=== PATIENT | female | born 1930 | race Caucasian/White ===

== ENCOUNTER 2016-10-23 08:43 | Outpatient (CLI) | payer MEDICARE | END 2016-10-23 08:44 | disposition home or self-care (01) | DX: I10 Essential (primary) hypertension (principal); E78.5 Hyperlipidemia, unspecified ==

== ENCOUNTER 2017-11-03 10:00 | Outpatient (CLI) | payer MEDICARE ==
[2017-11-03 18:29] LABS: ALBUMIN 4.1 g/dL (3.2-5.5); ALBUMIN/GLOBULIN RATIO 1.4 (1.0-2.2); ALKALINE PHOSPHATASE 63 IU/L (42-121); ALT ALANINE AMINOTRANSFERASE 14 IU/L (10-60); AST ASPARTATE AMINOTRANSFERASE 18 IU/L (10-42); BILIRUBIN,TOTAL 0.9 mg/dL (0.2-1.0); BUN - BLOOD UREA NITROGEN 21 mg/dL (6-20); CALCIUM 8.7 mg/dL (8.5-10.3); CARBON DIOXIDE - CO2 25 mmol/L (21-32); CHLORIDE 105 mmol/L (101-111); CHOL/HDL RATIO 2.9 (<4.4); CHOLESTEROL 163 mg/dL; CREATININE 0.9 mg/dL (0.4-1.0); GFR - MDRD 59 (>89); GLUCOSE 88 mg/dL (70-100); HDL CHOLESTEROL 56 mg/dL; LDL CHOLESTEROL,CALCULATED 89 mg/dL; LDL/HDL RATIO 1.6 (<4.4); SODIUM 137 mmol/L (135-145); TOTAL PROTEIN 7.1 g/dL (6.7-8.2); VLDL CHOLESTEROL 18 mg/dL
== END 2017-11-03 10:01 | disposition home or self-care (01) ==
LOC: LAB.F 10:00
PROVIDERS: ATTEND Family Medicine
DX: I10 Essential (primary) hypertension (principal); E78.5 Hyperlipidemia, unspecified; Z79.899 Other long term (current) drug therapy
CPT/HCPCS: 36415; 80053; 80061; 83721

== ENCOUNTER 2019-11-07 08:00 | Outpatient (CLI) | payer MEDICARE ==
--- NOTE | 2019-11-07 21:49 | XRAY Report ---
Reason: RIGHT HIP PAIN Procedure Date: 11/07/2019 Accession Number: [id number] / [id number] Procedure: WCP - Hip 1 View RT CPT Code: Addended Final Report FULL RESULT: EXAM: RIGHT HIP RADIOGRAPHY EXAM DATE: 11/07/2019 12:08 PM. CLINICAL HISTORY: RIGHT HIP PAIN. COMPARISON: None. TECHNIQUE: 2 views. FINDINGS: Bones: No fractures or bone lesion. Joints: Bilateral coxa profunda, right more than left. Moderate decreased hip joint space bilaterally. Soft Tissues: No significant soft tissue swelling. IMPRESSION: 1. No acute fractures or dislocations. 2. Bilateral coxa profunda. 3. Moderate decreased hip joint space bilaterally. [facility] ADDENDUM: 11/08/19 12:12 On further review, there are probable subtle nondisplaced right superior and inferior pubic rami fractures. Exam discussed with Helena Avlarez with addendum by Dr. Herman Williamson on 11/08/2019 at 12:12 PM.
== END 2019-11-07 23:59 | disposition home or self-care (01) ==
LOC: DI.WCP 08:00
PROVIDERS: ATTEND Physician Assistant Medical
DX: M25.852 Other specified joint disorders, left hip (principal); M25.851 Other specified joint disorders, right hip